=== PATIENT | female | born 1985 | race Hispanic/Latino ===

== ENCOUNTER 2017-01-05 14:50 | Inpatient (IN) | payer OTHER ==
[~2017-01-05] VITALS: Ht 152.4 cm; Wt 68.5 kg
[2017-01-05] VITALS (13 sets, daily range): BP systolic 118–171; BP diastolic 63–90
--- NOTE | 2017-01-05 14:40 | NUR ---
INITIAL ASSESSMENT DONE VIA MECHANIC ASSISTANT RAY NOLASCO.
--- NOTE | 2017-01-05 14:40 | NUR ---
PATIENT TO UNIT FROM HOME VIA ER ACCOMPANIED BY HER . WEIGHT AND HEIGHT OBTAINED. ESCORTED TO ROOM 253. CLEAN CATCH SPECIMEN OF URINE EXPLAINED AND OBTAINED. EFM COMMENCED. VIA INSURANCE COORDINATOR, PATIENT STATES SHE HAD CARE AT [facility] AND HOME IN [place] FOR PLACENTA PREVIA WHICH IS NOW RESOLVED. 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 SHE DENIES VAGINAL BLEEDING OR LEAKING OF AMNIOTIC FLUID BUT ADMITS TO ON AND OFF ABDOMINAL PAIN SINCE 0400 TODAY. WILL OBTAIN RECORDS FROM [facility] AND NOTIFY MD POWELL.
--- NOTE | 2017-01-05 15:20 | NUR ---
WAITING FOR RECORDS FROM [facility]. CONTRACTIONS 7-10 MINUTES APART, PALPATING MILD. GENTLE SVE DONE. CX 3CM DILATED, APPROX 70% EFFACED, VTX AT STATION 0 WITH BULGING MEMBRANE. NO BLOOD ON GLOVES. MD TO BE NOTIFIED.
[2017-01-05 15:42] LABS: URINE BILIRUBIN - DIPSTICK NEGATIVE (NEGATIVE); URINE BLOOD DIPSTICK NEGATIVE (NEGATIVE); URINE CLARITY CLEAR; URINE COLOR YELLOW; URINE GLUCOSE - DIPSTICK NEGATIVE (NEGATIVE); URINE KETONE NEGATIVE (NEGATIVE); URINE LEUK ESTERASE NEGATIVE (NEGATIVE); URINE NITRITE - DIPSTICK NEGATIVE (Negative); URINE PH 5.5 (4.5-8.0); URINE PROTEIN - DIPSTICK NEGATIVE (NEG-TRACE); URINE SPECIFIC GRAVITY <=1.005; URINE UROBILINOGEN - DIPSTICK 0.2 E.U./dL (0.2)
[2017-01-05 15:44] LABS: BARBITURATES NEGATIVE (NEGATIVE); COCAINE NEGATIVE (NEGATIVE); METHADONE NEGATIVE (NEGATIVE); OXCYCODONE NEGATIVE (NEGATIVE); TETRAHYDROCANNABIONOL NEGATIVE (NEGATIVE); TRICYLIC ANTIDEPRESSANTS NEGATIVE (NEGATIVE)
[2017-01-05] MEDS ORDERED: ACYCLOVIR400 MG PO (15:48)
[2017-01-05] MEDS ORDERED: PRE-NATAL PO (15:52)
--- NOTE | 2017-01-05 15:55 | NUR ---
RECORDS RECEIVED FROM [facility]. DR NOLAND NOTIFIED OF THE ABOVE. NEW ORDERS RECEIVED.
--- NOTE | 2017-01-05 16:30 | NUR ---
RESTS WITH EYES CLOSED, AROUSES WITH CONTR.
--- NOTE | 2017-01-05 16:45 | NUR ---
PT RESTS QUIELTY BETWEEN CONTR, USES BRT WITH CONTR.
--- NOTE | 2017-01-05 17:03 | NUR ---
1650 IV START SL, BLOOD TAKEN FOR LABS, SROM CLEAR FLUID AT 1653. 1703 VW 7CM, +1 STA, 90%. DR NOLAND NOTIFIED PT STATUS.
--- NOTE | 2017-01-05 17:12 | NUR ---
PT OOB TO BATHROOM, UNABLE TO VOID, MOVE TO BR 1 VIA WC. TO BED. PT MINDING CONTR, ENC TO USE BRT.
[2017-01-05 17:28] LABS: HEMOGLOBIN 10.5 g/dl (12.0-16.0); IMMATURE GRANULOCYTES 0.6 % (0.0-1.0); MEAN CELL VOLUME 80.9 fL CALC (80.0-100.0); MEAN CORPUSCULAR HGB 25.7 pG CALC (26.0-32.0); MEAN CORPUSCULAR HGB CONC 31.8 g/L CALC (32.0-36.0); NEUT# 5.52 thou/uL (2.00-7.15); RED BLOOD COUNT 4.08 mill/uL (4.20-5.60); RED CELL DISTRI WIDTH 16.1 % (11.5-15.5)
--- NOTE | 2017-01-05 17:30 | NUR ---
1720 DR NOLAND HERE, VE AT 172, COMPLETE. PT MAY PUSH. PT PUSHES WITH CONTR. VOIDS. BLADDER DISTENDED URETHRAL CATHETERIZATION BY DR NOLAND. 1727 TOCO REMOVED, CONTR PALPATED. PT PUSHES WITH CONTR. S/O AT SIDE SUPPORTIVE.
[2017-01-05 17:34] LABS: ALBUMIN 3.1 g/dL (3.2-5.0); ALKALINE PHOSPHATASE 203 u/l (38-126); ANION GAP 11 (6-22 (CALC)); BILIRUBIN, TOTAL 0.3 mg/dL (0.0-1.4); BUN 9 mg/dL (7-17); BUN/CREATININE RATIO 15 (12-20 (CALC)); CALCIUM 8.6 mg/dL (8.4-10.2); CARBON DIOXIDE 22 mmol/l (22-30); CHLORIDE 109 mmol/l (95-108); CREATININE 0.6 mg/dL (0.5-1.0); GFR > 60 ML/MIN (>=60 (CALC)); GFR FOR AFR.AMER. > 60 ML/MIN (>=60 (CALC)); GLUCOSE 74 mg/dL (65-105); POTASSIUM 3.9 mmol/l (3.5-5.1); SGOT/AST 36 u/l (14-36); SGPT/ALT 33 u/l (9-52); SODIUM 138 mmol/l (137-146); TOTAL PROTEIN 6.6 g/dL (6.3-8.2)
--- NOTE | 2017-01-05 18:00 | NUR ---
SPONT DEL BOY AT 1747. SPONT DEL PLACENTA AT 1751. IV WITH PITOCIN INFUSES ORDERED, PT GIVEN CYTOTEC ORDERED.
--- NOTE | 2017-01-05 18:25 | NUR ---
RECEIVED REPORT FROM PRIOR SHIFT ON PATIENT.
--- NOTE | 2017-01-05 18:30 | NUR ---
REPORT TO ONCOMING NURSE.
--- NOTE | 2017-01-05 18:30 | NUR ---
RECEIVED REPORT FROM PRIOR SHIFT ON PATIENT.
--- NOTE | 2017-01-05 18:30 | NUR ---
PT RESTS, HOLDS INFANT, SIPS JUICE. S/O AT SIDE.
--- NOTE | 2017-01-05 18:33 | NUR ---
Fundus firm at umbilicus. Moderate lochia. BP of 152/80. Patient complains of no pain at present time.
--- NOTE | 2017-01-05 18:47 | NUR ---
Moderate lochia. Fundus firm at umbilicus. 171/76.
--- NOTE | 2017-01-05 19:02 | NUR ---
Fundus firm at umbilicus. Moderate lochia. BP of 168/84.
--- NOTE | 2017-01-05 19:15 | NUR ---
Moderate lochia noted. Fundus firm at umbilicus. 159/71 BP.
--- NOTE | 2017-01-05 19:30 | NUR ---
UP TO BATHROOM WITH ASSIST. TOLERATED WELL WITHOUT DIZZINESS OR LIGHTHEADEDNESS. ABLE TO VOID MODERATE AMOUNT URINE WITHOUT DIFFICULTY. CASSIE FLETCHER. INSTRUCTED AND ASSISTED WITH PERICARE. VERBALIZED UNDERSTANDING OF INSTRUCTIONS.
--- NOTE | 2017-01-05 19:35 | NUR ---
TRANSFERRED TO ROOM 207 VIA WHEELCHAIR. ORIENTED TO POST- ROOM AND CALL SYSTEM. INSTRUCTED TO CALL WITH NEEDS. DEMONSTRATED UNDERSTANDING OF SAME. AT BEDSIDE.
--- NOTE | 2017-01-05 19:35 | NUR ---
BP of 160/80. Moderate lochia. Fundus firm at umbilicus.
--- NOTE | 2017-01-05 19:50 | NUR ---
BP of 158/84. Moderate lochia.Fundus firm at umbilicus.
--- NOTE | 2017-01-05 20:26 | NUR ---
Pain level of 5 on scale of 1 to 10 of cramping to abdomen. Medicated with ibuprofen 600mg given by mouth.
--- NOTE | 2017-01-05 21:13 | NUR ---
Dr. Banuelos called and notified of patient's blood pressure readings and states no he does not want to give anything for the blood pressure.
--- NOTE | 2017-01-05 23:25 | NUR ---
Patient up to bathroom with assist. Pericare assist done. Patient voided at present time.
--- NOTE | 2017-01-06 00:43 | NUR ---
Patient in room in no distress at present moment holding infant.
--- NOTE | 2017-01-06 02:40 | NUR ---
Patient in no distress at present moment.
--- NOTE | 2017-01-06 04:00 | NUR ---
Patient up to bathroom by self for pericare.
[2017-01-06 05:16] VITALS: BP 114/68
--- NOTE | 2017-01-06 05:19 | NUR ---
CBC collected and sent to lab.
[2017-01-06 05:45] LABS: HEMATOCRIT 31.2 % (37.0-47.0); HEMOGLOBIN 10.1 g/dl (12.0-16.0); IMMATURE GRANULOCYTES 1.5 % (0.0-1.0); MEAN CELL VOLUME 80.4 fL CALC (80.0-100.0); MEAN CORPUSCULAR HGB CONC 32.4 g/L CALC (32.0-36.0); NEUT# 8.17 thou/uL (2.00-7.15); RED BLOOD COUNT 3.88 mill/uL (4.20-5.60); RED CELL DISTRI WIDTH 16.1 % (11.5-15.5)
--- NOTE | 2017-01-06 07:00 | NUR ---
RECEIVED CARE OF PT. RESTING IN BED WITH IN ARMS, POSITIVE BONDING NOTED. CALL LIGHT WITHIN REACH.
[2017-01-06 07:45] VITALS: BP 119/70
--- NOTE | 2017-01-06 10:30 | NUR ---
FAMILY AT BEDSIDE. PT WITH NO REQUESTS. DENIES PAIN MEDICATION AT THIS TIME.
[2017-01-06 11:50] VITALS: BP 115/64
--- NOTE | 2017-01-06 11:55 | NUR ---
VITALS CHARTED. IV DISCONTINUED, CATHETER INTACT, PRESSURE APPLIED. SITE WNL.
--- NOTE | 2017-01-06 15:00 | NUR ---
PT OUT OF BED WITH NO REQUESTS. CALL LIGHT WITHIN REACH. FAMILY AT BEDSIDE.
--- NOTE | 2017-01-06 18:40 | NUR ---
REPORT GIVEN TO Lyubov VITALE RN. PT RESTING IN BED WITH FAMILY AT BEDSIDE.
--- NOTE | 2017-01-06 18:40 | NUR ---
REPORT RECEIVED FROM Sasha MURILLO RN. PT RESTING IN BED. DENIES NEEDS AT THIS TIME.
[2017-01-06 20:05] VITALS: BP 101/57
--- NOTE | 2017-01-06 21:15 | NUR ---
RECEIVED REPORT FROM NURSE DIANNA LOBATO RN ON PATIENT. PATIENT IN ROOM PRESENTLY INFANT AT PRESENT MOMENT. MOM FEELS THAT SHE DOES NOT HAVE ANY MILK TO BREASTFEED . MOM EDUCATED ON THAT THE MORE SHE BREASTFEEDS THE MORE SHE PRODUCES COLOSTRUM AND MILK. PATIENT VERBALIZED UNDERSTANDING OF SUCH.
--- NOTE | 2017-01-06 21:15 | NUR ---
REPORT GIVEN TO Hollis BURDICK RN. PT RESTING IN BED PRESENTLY.
--- NOTE | 2017-01-06 21:15 | NUR ---
REPORT FROM Dimitri KAYE RN ON PATIENT.
--- NOTE | 2017-01-06 21:20 | NUR ---
PATIENT IN ROOM AND INTRODUCED SELF TO PATIENT. PATIENT CONCERNED THAT SHE IS NOT PRODUCING ANY MILK. PATIENT EDUCATED THAT THE MORE SHE BREASTFEEDS THE MORE SHE WILL PRODUCE. PATIENT VERBALIZED UNDERSTANDING OF SUCH.
--- NOTE | 2017-01-06 21:30 | NUR ---
PATIENT IN ROOM PRESENTLY INFANT AT THE MOMENT.
--- NOTE | 2017-01-06 22:41 | NUR ---
PATIENT IN ROOM RESTING COMFORTABLY AND BONDING WITH AT PRESENT MOMENT.
--- NOTE | 2017-01-07 00:41 | NUR ---
Patient in room in no distress at present moment.
--- NOTE | 2017-01-07 02:27 | NUR ---
Patient resting in no distress at present moment.
[2017-01-07 05:30] VITALS: BP 106/52
--- NOTE | 2017-01-07 07:15 | NUR ---
PT LAYING IN BED, HOLDING , POSITIVE BONDING. ASSESSMENT DONE, STABLE, DENIES ANY PAIN. DOES C/O SORE NIPPLES, NIPPLES ARE NOT BLEEDING OR CRACKED, WILL PROVIDE LANOLIN. DISCUSSED PLAN OF CARE WITH PT, INCLUDING POSSIBLE DISCHARGE TODAY. TIGR VIDEO INITIATED. PT VERBALIZED UNDERSTANDING AND DENIES ANY OTHER NEEDS AT THIS TIME.
--- NOTE | 2017-01-07 07:37 | NUR ---
DR. NOLAND AT BEDSIDE, DISCUSSING PLAN OF CARE WITH PT, PT BEING DISCHARGED TODAY.
[2017-01-07] MEDS ORDERED: IBUPROFEN600 MG PO (08:02)
--- NOTE | 2017-01-07 08:45 | NUR ---
DISCHARGE INSTRUCTIONS GIVEN TO PT, INCLUDING RX FOR MOTRIN AND WHEN TO FOLLOW UP WITH THE MD. ALL QUESTIONS ANSWERED. PT VERBALIZED UNDERSTANDING.
--- NOTE | 2017-01-07 11:12 | NUR ---
PT SITTING UP IN BED, HOLDING INFANT. WAITING FOR CERTIFICATE TO GET DONE BEFORE GOING HOME. DENIES ANY PAIN OR NEEDS. FAMILY AT BEDSIDE.
--- NOTE | 2017-01-07 12:15 | NUR ---
PT DISCHARGED HOME VIA WHEELCHAIR IN STABLE CONDITION, WITH SIGNIFICANT OTHER.
== END 2017-01-07 12:15 | disposition home or self-care (01) | DRG 774 ==
LOC: OB 14:50 → OBOP 14:50 → OB 15:55
PROVIDERS: ADMIT Obstetrics & Gynecology; ATTEND Obstetrics & Gynecology
PROC: 10E0XZZ Delivery of Products of Conception, External Approach (ICD-10-PCS; principal; 2017-01-05)
DX: O98.32 Other infections with a predominantly sexual mode of transmission complicating childbirth (principal); A60.00 Herpesviral infection of urogenital system, unspecified; Z3A.40 40 weeks gestation of pregnancy; Z37.0 Single live birth